=== PATIENT | male | born 1970 | race Two or more races ===

== ENCOUNTER 2018-04-16 09:31 | Emergency (ER) | payer OTHER ==
[~2018-04-16] VITALS: Ht 180.3 cm; Wt 132.9 kg
[~2018-04-16 09:31] MED LIST: ADVAIR 250/501 EA; METOPROLOL; Z.0.SINGULAIR10 MG
[2018-04-16] MEDS ORDERED: ACETAMINOPHEN 325 MG TAB PO ONE ×2 (09:45→10:00)
[2018-04-16 10:31] LABS: INFLUENZAE A&B ANTIGEN (RAPID) NEGATIVE (NEGATIVE); STREPTOCOCCUS GRP A ANTIGEN NEGATIVE (NEGATIVE)
[2018-04-16] MEDS ORDERED: SODIUM CHLORIDE 0.9% 1000ML 1,000 ML IV STA (10:40)
[2018-04-16 11:04] LABS: BASOPHILS # (AUTO) 0.1 (0.0-0.1); BASOPHILS % 0.5 % (0.0-1.0); HEMATOCRIT 42.7 % (38.2-49.6); HEMOGLOBIN 14.8 g/dL (14.0-18.0); LYMPHOCYTES # (AUTO) 1.4 (1.0-3.2); LYMPHOCYTES % 15.4 % (18.0-39.1); MEAN CORPUSCULAR HEMOGLOBIN 29.2 pg (28-32); MEAN CORPUSCULAR HGB CONC 34.7 g/dL (31-35); MEAN CORPUSCULAR VOLUME 84.4 fL (81-99); MONOCYTES # (AUTO) 0.7 (0.2-0.8); MONOCYTES % 7.4 % (4.4-11.3); NEUTROPHILS % 76.1 % (38.7-80.0); PLATELET COUNT 188 x10e3/uL (140-360); RED BLOOD COUNT 5.06 x10e6/uL (4.3-5.7); RED CELL DISTRIBUTION WIDTH 13.1 % (11.7-14.4)
--- NOTE | 2018-04-16 11:10 | Diagnostic Imaging Report ---
EXAMINATION: CHEST 2 VIEWS INDICATION: \S\fever COMPARISON: None FINDINGS: PA and lateral views TUBES and LINES: None. LUNGS: Lungs are well inflated. Lungs are clear. There is no evidence of pneumonia or pulmonary edema. PLEURA: No pleural effusion or pneumothorax. HEART AND MEDIASTINUM: The cardiomediastinal silhouette is unremarkable. BONES AND SOFT TISSUES: No acute osseous lesion. Soft tissues are unremarkable. UPPER ABDOMEN: No free air under the diaphragm. IMPRESSION: No acute thoracic abnormality. Signed by: DR. Jono Disla MD on 04/16/2018 11:06 AM
[2018-04-16 11:15] LABS: ALANINE AMINOTRANSFERASE 246 IU/L (0-55); ALBUMIN 3.2 g/dL (3.5-5.0); ALKALINE PHOSPHATASE 142 IU/L (40-150); BLOOD UREA NITROGEN 13 mg/dL (7-26); BUN/CREATININE RATIO 14 (6-25); CALCIUM 9.1 mg/dL (8.4-10.2); CARBON DIOXIDE 23 mmol/L (22-29); CHLORIDE 100 mmol/L (98-107); CREATININE, SERUM 0.93 mg/dL (0.72-1.25); EST GLOMERULAR FILTRATION RATE > 60 ML/MIN (60-); GLUCOSE 129 mg/dL (74-118); SODIUM 133 mmol/L (136-145)
--- NOTE | 2018-04-16 11:22 | Diagnostic Imaging Report ---
Exam: Head CT without contrast History: Headache fever. Comparison studies: None Technique: Axial images were obtained from the skull base to the vertex. Coronal and sagittal images reconstructed from the axial data. Intravenous contrast: None Findings: Scalp: No abnormalities. Bones: No fractures, blastic or lytic lesions. Brain sulci: There is slight widening of the bifrontal sulci secondary to volume loss. Ventricles: There is asymmetric dilatation of the right lateral ventricle. The third and fourth ventricles are normal in size. Extra-axial spaces: No masses, no fluid collection. Prominence of the extra-axial CSF space in the bifrontal high convexity. Parenchyma: No abnormal densities. No masses, hemorrhage, acute or chronic vascular insults. Sellar/suprasellar region: No abnormalities. Craniocervical junction: Patent foramen magnum. No Chiari one malformation. Incidental findings: The frontal, ethmoid, sphenoid and partially imaged maxillary sinuses are clear. IMPRESSION: 1. No acute intracranial abnormality. 2. Partially imaged paranasal sinuses are clear. Chronic findings: 1. Nonspecific volume loss in the bifrontal high convexities. 2. 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 No evidence of hydrocephalus. Preliminary report was provided by neuroradiology fellow, Dr.Thach Deedee MD on 04/16/2018 11:21 AM. The images and preliminary report were reviewed and signed by Dr. Suzan Pappas, neuroradiology faculty, on 04/16/2018 at 1406 hours. Signed by: Dr. uSzan Pappas M.D. on 04/16/2018 2:07 PM
[2018-04-16 11:37] LABS: CLARITY,URINE HAZY (CLEAR); COLOR,URINE YELLOW (YELLOW); KETONES,URINE TRACE (NEGATIVE); LEUKOCYTE ESTERASE ,URINE NEGATIVE (NEGATIVE); NITRITE,URINE NEGATIVE (NEGATIVE); PROTEIN,URINE DIPSTICK 2+ (NEGATIVE); URINE UROBILINOGEN 0.2 mg/dL (0.2 - 1)
[2018-04-16 11:38] LABS: BILIRUBIN,URINE 1+ (NEGATIVE)
[2018-04-16 11:42] LABS: BACTERIA,URINE FEW /HPF; EPITHELIAL CELLS,URINE FEW /LPF; RBC,URINE 0-5 /HPF (0-5); WBC,URINE (MAN) 0-5 /HPF (0-5)
[2018-04-16] MEDS ORDERED: METOCLOPRAMIDE HCL 10 MG/2ML VIAL IV ONE (12:30)
[2018-04-16] MEDS ORDERED: LIDOCAINE HCL 1% LOCAL INJ 20 ML VIAL INJ ONE (12:30)
[2018-04-16] MEDS ORDERED: LIDOCAINE HCL 2% LOCAL 20 ML VIAL INJ ONE (12:45)
[2018-04-16 12:50] LABS: APPEARANCE,CSF CLEAR (CLEAR); COLOR,CSF COLORLESS (COLORLESS); TUBE NUMBER 3
[2018-04-16 12:51] LABS: WHITE BLOOD CELL,CSF 1 cells/uL (0-5)
[2018-04-16] MEDS ORDERED: POTASSIUM CHLORIDE 20 MEQ TAB CR PO ONE (13:00)
[2018-04-16 14:09] VITALS: BP 107/58
== END 2018-04-16 14:07 | disposition home or self-care (01) ==
LOC: ER 09:31
DX: R50.9 Fever, unspecified (principal); G43.909 Migraine, unspecified, not intractable, without status migrainosus; E87.5 Hyperkalemia; R19.7 Diarrhea, unspecified; I10 Essential (primary) hypertension; J45.909 Unspecified asthma, uncomplicated
CPT/HCPCS: 62270; 99284; J2765; J7030

== ENCOUNTER 2019-03-13 20:28 | Emergency (ER) | payer OTHER ==
[~2019-03-13] VITALS: Ht 180.3 cm; Wt 132.9 kg
--- OUTSIDE RECORDS SUMMARY | 2019-03-13 20:31 | XMS REPORT ---
Author Author [facility] Address Unknown Phone Unavailable Care Team Providers Care Behavioral Psychologist Name Role Phone Choco MCNALLY Unavailable Unavailable Problems This patient has no known problems. Allergies, Adverse Reactions, Alerts This patient has no known allergies or adverse reactions. Medications This patient has no known medications. Results Test Description Test Time Test Comments Text Results Atomic Results Result Comments CT BRAIN WO [facility] [address] [address] Patient Name: LISA DAMON MR #: [id number] : 1970 Age/Sex: 47/M Req #: [id number] Adm Physician: Ordered by: FABBY HOLLINGSWORTH Report #: [id number] Location: ER Room/Bed: Procedure: [id number] CT/CT BRAIN WO Exam Date: 04/16/18 Exam Time: 1030 REPORT STATUS: Signed Exam: Head CT without contrast History: Headache fever. Comparison studies: None Technique: Axial images were obtained from the skull base to the vertex. Coronal and sagittal images reconstructed from the axial data. Intravenous contrast: None Findings: Scalp: No abnormalities. Bones: No fractures, blastic or lytic lesions. Brain sulci: There is slight widening of the bifrontal sulci secondary to volume loss. Ventricles: There is asymmetric dilatation of the right lateral ventricle. The third and fourth ventricles are normal in size. Extra-axial spaces: No masses, no fluid collection. Prominence of the extra-axial CSF space in the bifrontal high convexity. Parenchyma: No abnormal densities. No masses, hemorrhage, acute or chronic vascular insults. Sellar/suprasellar region: No ab normalities. Craniocervical junction: Patent foramen magnum. No Chiari one malformation. Incidental findings: The frontal, ethmoid, sphenoid and partially imaged maxillary sinuses are clear. IMPRESSION: 1. No acute intracranial abnormality. 2. Partially imaged paranasal sinuses are clear. Chronic findings: 1. Nonspecific volume loss in the bifrontal high convexities. 2. 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 No evidence of hydrocephalus. Preliminary report was provided by neuroradiology fellow, Dr.Thach Deedee MD on 04/16/2018 11:21 AM. The images and preliminary report were reviewed and signed by Dr. Suzan Pappas, neuroradiology faculty, on 04/16/2018 at 1406 hours. Signed by: Dr. Suzan Pappas M.D. on 04/16/2018 2:07 PM Dictated By: SUZAN DAVENPORT MD 1407 COPY TO: FABBY HOLLINGSWORTH CHEST 2 VIEWS [place] [address] Patient Name: LISA DAMON MR #: [id number] : 1970 Age/Sex: 47/M Req #: [id number] Adm Physician: Ordered by: FABBY HOLLINGSWORTH Report #: [id number] Location: ER Room/Bed: Procedure: [id number] DX/CHEST 2 VIEWS Exam Date: Exam Time: REPORT STATUS: Signed EXAMINATION: CHEST 2 VIEWS INDICATION: COMPARISON: None FINDINGS: PA and lateral views TUBES and LINES: None. LUNGS: Lungs are well inflated. Lungs are clear. There is no evidence of pneumonia or pulmonary edema. PLEURA: No pleural effusion or pneumothorax. HEART AND MEDIASTINUM: The cardiomediastinal silhouette is unremarkable. BONES AND SOFT TISSUES: No acute osseous lesion. Soft tissues are unremarkable. UPPER ABDOMEN: No free air under the diaphragm. IMPRESSION: No acute thoracic abnormality. Signed by: DR. Jono Mckenna MD on 04/16/2018 11:06 AM Dictated By: JONO MCKENNA MD 05 Transcribed By: IRAIS on 04/16/181105 COPY TO: FABBY HOLLINGSWORTH
== END 2019-03-13 23:09 | disposition short-term general hospital (02) ==
LOC: ER 20:28
DX: M54.9 Dorsalgia, unspecified (principal)